=== PATIENT | female | born 1965 | race Caucasian/White ===

== ENCOUNTER → 2019-05-07 14:13 | Outpatient (CLI) | payer BC, MEDICAID, SELFPAY ==
[2019-03-03 08:57] VITALS: BMI 31.8
== END ==
PROVIDERS: Family Provider Family Medicine; PCP Family Medicine; Referring Provider Physician Assistant; Visit Provider Physician Assistant
DX: J02.9 Acute pharyngitis, unspecified (principal)
CPT/HCPCS: 87070

== ENCOUNTER → 2019-07-05 11:36 | Outpatient (CLI) | payer BC, SELFPAY ==
[2019-03-03 08:57] VITALS: BMI 31.8
[2019-07-05 13:37] LABS: Absolute Lymphocyte Count 2.23 X10^3/uL (0.83-4.51); Basophil# 0.04 X10^3/uL; Basophil% 0.7 % (0-1); Eosinophil# 0.18 X10^3/uL; Eosinophils% 3.1 % (0-5); Hematocrit 40.2 % (37-47); Hemoglobin 13.1 g/dL (12.0-15.0); Lymphocyte # 2.23 X10^3/ul (4.0); Lymphocyte % 38.1 % (19-41); Mean Corp Hgb Conc 32.6 g/dL (32-36); Mean Corpuscular Volume 88.9 fL (81-99); Mean Platelet Vol. 10.9 fl (6.2-12.0); Monocyte# 0.44 X10^3/uL; Monocyte% 7.5 % (0-10); NRBC Flagged by Analyzer 0 % (0-5); Neutrophil # 2.95 X10^3/uL (2.7-7.7); Neutrophil % 50.4 % (47-70); Platelet Count 220 K/mm3 (150-450); RBC Distribution Width CV 13.7 % (11.6-14.6); RBC Distribution Width SD 44.9 fl (35.1-43.9); Red Blood Count 4.52 M/mm3 (4.2-5.4); White Blood Count 5.9 K/mm3 (4.4-11.0)
[2019-07-05 13:39] LABS: Color, Urine Yellow (Yellow); Glucose, Dipstick Normal (Normal); Ketone-Dipstick Negative (Negative); Leukocyte Esterase-Dipstick Negative /ul (Negative); Nitrite-Dipstick Negative (Negative); Occult Blood-Urine Negative /ul (Negative); Protein-Dipstick 15 mg/dl (Negative); Urine Bilirubin Dipstick Negative (Negative); Urine Clarity Clear (Clear); Urine Urobilinogen Normal (Normal)
[2019-07-05 14:02] LABS: ALB/GLOB Ratio 1.1 RATIO (0.9-2.4); AST(SGOT) 16 U/L (15-37); Alanine Aminotransfer ALT/SGPT 38 U/L (13-56); Albumin, Serum 3.6 g/dL (3.2-5.0); Alkaline Phosphatase 82 U/L (45-117); Anion Gap 6 (5-15); BUN 17 mg/dL (7-18); Calcium,Total 8.4 mg/dL (8.5-10.1); Chloride 109 mmol/L (98-107); Cholesterol 188 mg/dL (200); Creatinine, Serum 0.95 mg/dL (0.55-1.02); EST Glomerular Filtration Rate 65 mL/min (>60); Est Glom Filt Rate - Afr Amer 79 mL/min (>60); Globulin 3.3 g/dL (2.2-4.2); Glucose 86 mg/dL (74-106); High Density Lipoprotein 72 mg/dL; Protein, Total 6.9 g/dL (6.4-8.2); Sodium Level 141 mmol/L (136-145); Thyroid Stim Hormone (TSH) 0.25 uIU/mL (0.358-3.74); Triglycerides 64 mg/dL; Very Low Density Lipoprotein 13 mg/dL (5-40)
== END ==
LOC: MTLAB 11:45
PROVIDERS: PCP Family Medicine; Referring Provider Family Medicine; Visit Provider Family Medicine
DX: Z00.00 Encounter for general adult medical examination without abnormal findings (principal); E03.9 Hypothyroidism, unspecified
CPT/HCPCS: 36415; 80053; 80061; 81002; 84443; 85025

== ENCOUNTER → 2019-09-13 12:13 | Outpatient (CLI) | payer BC, SELFPAY ==
[2019-03-03 08:57] VITALS: BMI 31.8
[2019-09-13 15:34] LABS: Thyroid Stim Hormone (TSH) 2.38 uIU/mL (0.358-3.74)
== END ==
LOC: MTLAB 12:15
PROVIDERS: PCP Family Medicine; Referring Provider Family Medicine; Visit Provider Family Medicine
DX: E03.9 Hypothyroidism, unspecified (principal)
CPT/HCPCS: 36415; 84443

== ENCOUNTER → 2020-06-27 16:52 | Outpatient (CLI) | payer BC, SELFPAY ==
[2020-06-27 08:22] VITALS: BMI 31.8
--- NOTE | 2020-06-27 16:54 | RAD_ITS ---
STUDY: X-RAY CHEST REASON FOR EXAM: Female, 55 years old. COVID 19 in April. Now with continued shortness of breath and fatigue. TECHNIQUE: PA and lateral views of the chest. COMPARISON: None. FINDINGS: The lungs are hypoexpanded. There is minimal atelectatic versus infiltrative changes at the right lung base. The lungs are otherwise clear. There is no demonstrated pleural abnormality. Normal size heart. Normal mediastinum and rinku. Normal visualized pulmonary arteries. Normal visualized aortic arch and descending thoracic aorta. Normal visualized thoracic spine. Normal visualized ribs, clavicles, and shoulders. There are surgical clips in the anterior neck. There is no demonstrated abnormality of the visualized soft tissue structures of the upper abdomen. RAD/Chest PA and Lateral IMPRESSION: Minimal atelectasis versus infiltrate in the right middle lobe. The lungs are otherwise clear. Electronically Signed: Evans Guillory DO at 17:10 EST Tel [phone], Service support ,
== END ==
PROVIDERS: PCP Family Medicine; Referring Provider Physician Assistant; Visit Provider Physician Assistant
DX: R06.02 Shortness of breath (principal)
CPT/HCPCS: 71046

== ENCOUNTER → 2020-07-12 14:58 | Outpatient (CLI) | payer BC, SELFPAY ==
[2020-07-12 14:31] VITALS: BMI 31.9
[2020-07-12 16:32] LABS: Absolute Lymphocyte Count 2.46 X10^3/uL (0.83-4.51); Absolute Neutrophil Count 3.1 X10^3/uL (2.0-7.7); Basophil# 0.04 X10^3/uL; Basophil% 0.6 % (0-1); Eosinophil# 0.27 X10^3/uL; Eosinophils% 4.3 % (0-5); Hematocrit 43.6 % (37-47); Hemoglobin 14.1 g/dL (12.0-15.0); Lymphocyte # 2.46 X10^3/ul (4.0); Lymphocyte % 39.1 % (19-41); Mean Corp Hgb Conc 32.3 g/dL (32-36); Mean Corpuscular Hgb 29.5 pg (27.0-32.0); Mean Corpuscular Volume 91.2 fL (81-99); Mean Platelet Vol. 11.2 fl (6.2-12.0); Monocyte# 0.44 X10^3/uL; NRBC Flagged by Analyzer 0 % (0-5); Neutrophil # 3.07 X10^3/uL (2.7-7.7); Neutrophil % 48.8 % (47-70); Platelet Count 262 K/mm3 (150-450); RBC Distribution Width CV 13.8 % (11.6-14.6); RBC Distribution Width SD 46.8 fl (35.1-43.9); Red Blood Count 4.78 M/mm3 (4.2-5.4); White Blood Count 6.3 K/mm3 (4.4-11.0)
[2020-07-12 16:55] LABS: ALB/GLOB Ratio 1.2 RATIO (0.9-2.4); AST(SGOT) 17 U/L (15-37); Alanine Aminotransfer ALT/SGPT 29 U/L (13-56); Albumin, Serum 3.8 g/dL (3.2-5.0); Alkaline Phosphatase 78 U/L (45-117); Anion Gap 5 (5-15); BUN 15 mg/dL (7-18); BUN/Creat Ratio 14.9 RATIO (10-20); Calcium,Total 8.9 mg/dL (8.5-10.1); Chloride 108 mmol/L (98-107); Cholesterol 206 mg/dL (200); Creatinine, Serum 1.01 mg/dL (0.55-1.02); EST Glomerular Filtration Rate 60 mL/min (>60); Est Glom Filt Rate - Afr Amer 73 mL/min (>60); Globulin 3.3 g/dL (2.2-4.2); Glucose 82 mg/dL (74-106); High Density Lipoprotein 84 mg/dL; Potassium 4.2 mmol/L (3.5-5.1); Protein, Total 7.1 g/dL (6.4-8.2); Sodium Level 140 mmol/L (136-145); Triglycerides 68 mg/dL; Very Low Density Lipoprotein 14 mg/dL (5-40)
== END ==
LOC: BIMLAB 14:59
PROVIDERS: PCP Internal Medicine; Referring Provider Internal Medicine; Visit Provider Internal Medicine
DX: E03.9 Hypothyroidism, unspecified (principal); J45.909 Unspecified asthma, uncomplicated
CPT/HCPCS: 36415; 80053; 80061; 84443; 85025

== ENCOUNTER → 2020-07-17 06:56 | Outpatient (CLI) | payer BC, SELFPAY ==
[2020-07-12 14:31] VITALS: BMI 31.9
--- NOTE | 2020-07-17 13:42 | PFTCOMP ---
COMPLETE PULMONARY FUNCTION TEST INTERPRETATION Brief HPI: Patient is a 55 year old female, currently under the care of Dr. Kendall, who presents to [facility] for complete pulmonary function tests secondary to diagnosis of asthma. Respiratory therapist reports good effort and reproducible results. Interpretation: Forced expiration spirometry shows no large airways obstructive ventilatory defect with an FEV1 of 92% predicted. There is no significant bronchodilator response by strict ATS criteria. Spirograms are of good quality and plateau normally. The respiratory flow volume loop shows a normal pattern. Lung volumes by body plethysmography show a decreased total lung capacity at 4.1 L, 80% predicted. All other lung volumes are reduced symmetrically. Diffusion capacity by carbon monoxide is decreased at 58% predicted. The airway resistance is normal. No previous pulmonary function tests were available for review. Impression: Mild restrictive ventilatory defect with a disproportionate reduction in diffusing capacity.
== END ==
LOC: PSN 06:56
PROVIDERS: PCP Internal Medicine; Referring Provider Internal Medicine; Visit Provider Internal Medicine
DX: J45.909 Unspecified asthma, uncomplicated (principal)
CPT/HCPCS: 94060; 94726; 94729

== ENCOUNTER → 2020-08-15 09:24 | Outpatient (CLI) | payer BC, SELFPAY ==
[2020-07-12 14:31] VITALS: BMI 31.9
--- NOTE | 2020-08-15 09:35 | ECHOD_ITS ---
Version 2 Reason For Study: SOB Procedure This was a 2D Doppler, Color Flow transthoracic echocardiogram. Exam performed in department. Left Ventricle Normal LV size. Left ventricular systolic function is normal. The estimated ejection fraction is 60 %. Stage 1 diastolic dysfunction. No regional wall motion abnormalities noted. Right Ventricle Normal RV size. Normal systolic function. Atria Normal left atrium. Normal right atrium. Mitral Valve Normal mitral valve. Tricuspid Valve Normal tricuspid valve. Aortic Valve Normal aortic valve. Trisinus/trileaflet aortic valve. Pulmonic Valve Normal pulmonic valve. Great Vessels Normal aortic root. The pulmonary artery is normal size. Normal inferior vena cava. Pericardium/Pleural No pericardial effusion. MMode/2D Measurements & Calculations LVIDd: 4.1 cm IVSd: 1.1 cm Ao root diam: 3.0 cm LVIDs: 2.2 cm LVPWd: 0.99 cm RVDd: 3.3 cm FS: 47.3 % LAV(MOD-bp): 45.3 ml LVAd ap4: 27.0 cm2 SV(MOD-sp4): 51.2 ml LAV(MOD-bp) Indexed: 22.3 ml/m2 EDV(MOD-sp4): 76.1 ml LAV(MOD-sp2): 34.1 ml EDV(sp4-el): 79.9 ml LAV(MOD-sp4): 56.7 ml LVAs ap4: 14.3 cm2 ESV(MOD-sp4): 24.9 ml ESV(sp4-el): 25.2 ml EF(MOD-sp4): 67.3 % EF(sp4-el): 68.4 % SV(sp4-el): 54.7 ml LA A4 area: 18.6 cm2 LA dimension(2D): 3.7 cm RA A4 area: 14.0 cm2 Doppler Measurements & Calculations MV E max aniket: 82.6 cm/sec Lat Peak E' Aniket: 8.1 cm/sec Med Peak E' Aniket: 6.7 cm/sec MV A max aniket: 89.6 cm/sec E/E' lat: 10.1 E/E' med: 12.3 MV E/A: 0.92 Ao V2 max: 123.5 cm/sec LV V1 max: 116.9 cm/sec PA V2 max: 95.2 cm/sec Ao max P.1 mmHg LV V1 max P.5 mmHg TR max aniket: 210.3 cm/sec TR max P.8 mmHg ECHO/Echo Complete Interpretation Summary Normal LV size. Left ventricular systolic function is normal. The estimated ejection fraction is 60 %. Stage 1 diastolic dysfunction. Ordering Physician: Malachi Kendall Referring Physician: Malachi Kendall Performed By: Ruthie Washburn RDCS
== END ==
PROVIDERS: PCP Internal Medicine; Referring Provider Internal Medicine; Visit Provider Internal Medicine
DX: R06.02 Shortness of breath (principal); R94.2 Abnormal results of pulmonary function studies
CPT/HCPCS: 93306

== ENCOUNTER → 2020-11-28 12:40 | Outpatient (CLI) | payer BC, SELFPAY ==
[2020-11-09 09:46] VITALS: BMI 34.3
[2020-11-28 13:23] VITALS: PULSE 101; PULSE 75; PULSE 77; PULSE 92; PULSE 93; PULSE 99; O2SAT 96; O2SAT 97
--- NOTE | 2020-11-29 10:18 | PCM.PSN.6M ---
PSN 6 Minute Walk Test 6 Minute Walk Test 6 Minute Walk Test: 6 Minute Walk Test PSN:6-Minute Walk Test Start: 11/28/20 13:23 Freq: Status: Active Protocol: RESP.6MINW Document 11/28/20 13:23 EMMA (Rec: 11/28/20 13:29 EMMA [id number]) 6 Minute Walk Test Date Performed 11/28/20 Time Performed 12:45 Height 5 ft 4 in Weight: 198 lb Weight in Pounds 198.[address]: Lam New Assistive device used: None Pre-test Oxygen Delivery Method Room Air Pulse Ox (%) 97 Pulse Rate (60-100 beats/min) 75 Dyspnea Kike Scale (0-10) 0 Exertion Kike Scale (6-20) 6 1st minute Oxygen Delivery Method Room Air Pulse Ox (%) 96 Pulse Rate (60-100 beats/min) 92 2nd minute Oxygen Delivery Method Room Air Pulse Ox (%) 96 Pulse Rate (60-100 beats/min) 93 3rd minute Oxygen Delivery Method Room Air Pulse Ox (%) 97 Pulse Rate (60-100 beats/min) 92 4th minute Oxygen Delivery Method Room Air Pulse Ox (%) 97 Pulse Rate (60-100 beats/min) 101 H 5th minute Oxygen Delivery Method Room Air Pulse Ox (%) 97 Pulse Rate (60-100 beats/min) 99 6th minute Oxygen Delivery Method Room Air Pulse Ox (%) 97 Pulse Rate (60-100 beats/min) 99 Dyspnea Kike Scale (0-10) 3 Exertion Kike Scale (6-20) 13 Post-test Oxygen Delivery Method Room Air Pulse Ox (%) 97 Pulse Rate (60-100 beats/min) 77 Full Laps Walked 16 Partial Lap, Number of Tiles Walked 16 Total Distance Walked (ft) 960 Interpretation Interpretation: The patient ambulated 960 feet over the course of 6 minutes beginning on room air without assistive devices. Pretesting oxygen saturation was noted to be 97% on room air. With ambulation, the monae oxygen saturation was 96%. There was no significant exertional oxygen desaturation. Recommendations Recommendations: There is no indication for the use of supplemental oxygen at this time.
== END ==
PROVIDERS: PCP Internal Medicine; Referring Provider Internal Medicine Critical Care Medicine; Visit Provider Internal Medicine Critical Care Medicine
DX: R94.2 Abnormal results of pulmonary function studies (principal); U07.1 COVID-19
CPT/HCPCS: 94618

== ENCOUNTER → 2020-12-06 16:18 | Outpatient (CLI) | payer BC, SELFPAY ==
[2020-12-05 18:11] VITALS: BMI 34.3
[2020-12-06 18:14] LABS: Thyroid Stim Hormone (TSH) 0.35 uIU/mL (0.358-3.74)
== END ==
PROVIDERS: PCP Internal Medicine; Referring Provider Internal Medicine; Visit Provider Internal Medicine
DX: E03.9 Hypothyroidism, unspecified (principal)
CPT/HCPCS: 36415; 84443

== ENCOUNTER → 2021-03-01 07:54 | Outpatient (CLI) | payer BC, SELFPAY ==
[2021-03-01 09:37] LABS: Thyroid Stim Hormone (TSH) 2.09 uIU/mL (0.358-3.74)
== END ==
PROVIDERS: PCP Internal Medicine; Referring Provider Nurse Practitioner Family; Visit Provider Nurse Practitioner Family
DX: E03.9 Hypothyroidism, unspecified (principal)
CPT/HCPCS: 36415; 84443

== ENCOUNTER 2021-06-07 08:55 | Outpatient (CLI) | payer OTHER, SELFPAY ==
[2021-06-07 12:25] LABS: Absolute Lymphocyte Count 1.64 X10^3/uL (0.83-4.51); Absolute Neutrophil Count 3.3 X10^3/uL (2.0-7.7); Basophil# 0.06 X10^3/uL; Eosinophil# 0.47 X10^3/uL; Hematocrit 42.3 % (37-47); Hemoglobin 13.8 g/dL (12.0-15.0); Lymphocyte # 1.64 X10^3/ul (0.83-4.51); Lymphocyte % 27.8 % (19-41); Mean Corp Hgb Conc 32.6 g/dL (32-36); Mean Corpuscular Hgb 29.4 pg (27.0-32.0); Mean Platelet Vol. 11.2 fl (6.2-12.0); Monocyte# 0.41 X10^3/uL; NRBC Flagged by Analyzer 0 % (0-5); Platelet Count 256 K/mm3 (150-450); RBC Distribution Width CV 13.5 % (11.6-14.6); RBC Distribution Width SD 44.8 fl (35.1-43.9); White Blood Count 5.9 K/mm3 (4.4-11.0)
[2021-06-07 12:48] LABS: ALB/GLOB Ratio 1.1 RATIO (0.9-2.4); AST(SGOT) 12 U/L (15-37); Alanine Aminotransfer ALT/SGPT 23 U/L (13-56); Albumin, Serum 3.6 g/dL (3.2-5.0); Alkaline Phosphatase 75 U/L (45-117); Anion Gap 4 (5-15); BUN 17 mg/dL (7-18); BUN/Creat Ratio 16.7 RATIO (10-20); Calcium,Total 8.5 mg/dL (8.5-10.1); Chloride 110 mmol/L (98-107); Cholesterol 178 mg/dL (200); Creatinine, Serum 1.02 mg/dL (0.55-1.02); EST Glomerular Filtration Rate 59 mL/min (>60); Est Glom Filt Rate - Afr Amer 72 mL/min (>60); Globulin 3.3 g/dL (2.2-4.2); Glucose 92 mg/dL (74-106); High Density Lipoprotein 72 mg/dL; Potassium 4.3 mmol/L (3.5-5.1); Protein, Total 6.9 g/dL (6.4-8.2); Sodium Level 140 mmol/L (136-145); Triglycerides 78 mg/dL; Very Low Density Lipoprotein 16 mg/dL (5-40)
== END 2021-06-07 23:59 | disposition short-term general hospital (02) ==
LOC: BIMLAB 08:56
PROVIDERS: PCP Internal Medicine; Referring Provider Internal Medicine; Visit Provider Internal Medicine
DX: Z00.00 Encounter for general adult medical examination without abnormal findings (principal)
CPT/HCPCS: 36415; 80053; 80061; 85025

== ENCOUNTER 2021-07-04 07:55 | Outpatient (CLI) | payer OTHER, SELFPAY ==
--- NOTE | 2021-07-04 07:57 | BI_ITS ---
MAMMOGRAPHY - BILATERAL SCREENING REASON FOR EXAM: Female, 56 years old. Routine annual screening examination. PERTINENT HISTORY: Non-contributory. TECHNIQUE: Digital bilateral breast britt (3D mammographic acquisition) in the CC and MLO projections. 2-D mediolateral oblique (MLO) and craniocaudad (CC) views of both breasts were obtained. CAD: Full Field Digital Mammography with Computer Added Detection was performed. COMPARISON: No comparison mammograms available at this time. If any prior films become available, an addendum to this report can be generated. FINDINGS: Breast Composition: The breasts are heterogeneously dense, which may obscure small masses. There is a 1.2 cm x 1.2 cm spiculated nodule in the deep upper slightly medial aspect of the right breast. A biopsy is recommended. Fat-containing bilateral axillary lymph nodes are seen. No other significant abnormalities are identified. BI/SCRN MAMM (CAD)W/BRITT BILAT IMPRESSION: 1.2 cm x 1.2 cm prickly nodule in the deep upper slightly medial aspect of the right breast as described. Biopsy recommended. ASSESSMENT CATEGORY: BIRADS Category 5: Highly Suggestive of Malignancy - Appropriate Action Should Be Taken. A letter regarding these results will be sent to the patient by the facility within 30 days. Approximately 10% of breast cancers are not detected by mammography. A normal mammogram should not delay biopsy of a clinically suspicious abnormality. [id number] Electronically Signed: Cesar Avila MD at 9:06 EST ,
== END 2021-07-04 23:59 | disposition home or self-care (01) ==
LOC: OPBI 07:55
PROVIDERS: PCP Internal Medicine; Referring Provider Internal Medicine; Visit Provider Internal Medicine
DX: Z12.31 Encounter for screening mammogram for malignant neoplasm of breast (principal)
CPT/HCPCS: 77063; 77067

== ENCOUNTER 2021-07-05 10:00 | Outpatient (CLI) | payer OTHER, SELFPAY | END 2021-07-05 23:59 | disposition home or self-care (01) | LOC: BIMLAB 10:01 | PROVIDERS: PCP Internal Medicine; Referring Provider Internal Medicine; Visit Provider Internal Medicine | DX: E03.9 Hypothyroidism, unspecified (principal) | CPT/HCPCS: 36415; 84443 ==

== ENCOUNTER 2021-07-10 12:44 | Outpatient (CLI) | payer OTHER, SELFPAY ==
--- NOTE | 2021-07-10 | IMM_PTH ---
PATIENT: JEANNE PIERRE LOC: [facility] U#:[id number] AGE/SX: 56/F ROOM: RE07/10/[address]: Dr. Estelita Lakhani MD : 1965 BED: DIS: 07/10/2021 SPEC #: [id number] RECD: 07/12/21 11:46 STATUS: RONALD REQ #: [id number] JAMILA: 07/10/21 00:[address]: Estelita Lakhani DEPT: IMMUNOHISTOCHEMISTRY RECD BY: Tierra Grier ENTERED: 07/12/21 11:47 SP TYPE: IMMUNO OTHR DR: Dr. Malachi Kendall MD Tissues: Right breast, NOS Procedures: CALPONIN-1 (add) CK5-6 (add) CK8 (add) VANG-2 (add) E-CAD (add) HER2 BLADIMIR (add) KI-67 (add) P53 (add) NH (add) P40 (add) ER (initial) PHYSICIAN & INSTITUTION [address] [address] SPECIMEN INFORMATION: Tissue Source: Right breast Clinical Info: Right breast mass Specimen Number: [id number] CPT code: 75817, 79556 x7, 38378 x3 METHODOLOGY: Deparaffinized sections of prefer/formalin-fixed tissue or PAP/DQ stained slides are incubated with monoclonal/polyclonal antibodies/oligonucleotide probes. Localization is made via biotin free immunoperoxidase method. Appropriate controls are performed and reacted as expected. Results on target cell population are indicated in the following table: RESULTS: ANTIBODY / CLONE RESULT P53 (DO-7) negative Ki-67 (30-9) positive, 5% CK8 (93uqcgT77) positive CK5-6 (D5 & 1684) negative Calponin-1 (JK369A) negative P40 (BC28) negative E-Cad (ECH-6) positive VANG-2 (SP21) positive, dim MORPHOMETRIC ANALYSIS ER (clone 6F11) >95%, strong intensity NH (clone 16/1E2) >95%, moderate to strong intensity Her-2Neu (clone CB11) 0 The prognostic test for HER2 is performed on formalin-fixed paraffin embedded tissue. A 3+ (positive) staining pattern is defined as intense, homogeneous, complete, circumferential membranous staining in >10% of contiguous tumor cells. A similar weak (2+) staining pattern is interpreted as equivocal. MICHAELA follow-up testing is recommended for all equivocal cases. Positivity/negativity for ER/NH is reported if > or < 1% of the tumor cells are immuno- reactive, respectively. The ASCO/CAP criteria is used for scoring. Reference: Journal of Clinical Oncology, 2013; 31:7261-6375 & 2010; 16:3340-0615. Duration of fixation: 28.5 Hrs; Sample Adequate: Yes. These assays have not been validated on decalcified tissues. Results should be interpreted with caution given the likelihood of false negativity on decalcified specimens. These tests were developed and their performance characteristics determined by [facility]. They may not have been cleared or approved by the U.S. Food and Drug Administration. The FDA has determined that such clearance or approval is not necessary. The above immunohistochemical/dualISH markers are ordered and reviewed by the Pathologist. INTERPRETATION: Right breast, ultrasound-guided core biopsy: Invasive ductal carcinoma. Positive for estrogen receptors (favorable prognostic indicator). Positive for progesterone receptors (favorable prognostic indicator). Negative for overexpression of PHL9qcu. AM:maria g 07/15/2021
--- NOTE | 2021-07-10 | BRBX_PTH ---
PATIENT: JEANNE PIERRE LOC: [facility] U#:[id number] AGE/SX: 56/F ROOM: RE07/10/[address]: Dr. Estelita Lakhani MD : 1965 BED: DIS: 07/10/2021 SPEC #: [id number] RECD: 07/10/21 15:32 STATUS: RONALD REGurwinder #: [id number] JAMILA: 07/10/21 00:[address]: Estelita Lakhani DEPT: SURGICAL PATHOLOGY RECD BY: Milton Munroe ENTERED: 07/11/21 08:41 SP TYPE: BREAST BX OTHR DR: Dr. Malachi Kendall MD Tissues: Right breast, NOS Procedures: Surgery Specimen Level IV HEADER OPERATION: Ultrasound-guided right breast biopsy PRE-OP DIAGNOSIS: Right breast mass TISSUE SUBMITTED: Right breast ISCHEMIC TIME: 30 seconds FIXATION TIME: 28.5 hours MICROSCOPIC DIAGNOSIS Right breast mass, ultrasound-guided core biopsy: Invasive ductal carcinoma with the following characteristics: Nuclear grade ? 1/3 Maximal length ? 9 millimeters See comment. AM:maria g 07/12/2021 COMMENT Immunohistochemistry ([id number]) supports the above diagnosis. This case was discussed with Dr. Lakhani 07/15/21. MICROSCOPIC DESCRIPTION Slides are reviewed. GROSS DESCRIPTION Received in fixative is one container labeled with the patient's name and designated right breast. The specimen consists of two elongated fragments of mackey tissue. Each core has an average length of 1.5 cm and average diameter of 0.2 cm. The specimen is totally submitted in one cassette. / AM:maria g 07/11/2021 TC:0 [facility]: [id number]
--- NOTE | 2021-07-10 12:48 | US_ITS ---
STUDY: ULTRASOUND BREAST - RIGHT REASON FOR EXAM: Female, 56 years old. Abnormal screening mammogram. TECHNIQUE: Axial and longitudinal images of the RIGHT breast were performed with a high resolution ultrasound transducer. # OF IMAGES: 80 COMPARISON: Comparison is made with prior mammogram dated 07/04/2021. FINDINGS: RIGHT Breast: The mammographic abnormality corresponds to a 1.1 cm x 1.3 cm x 1.1 cm irregular hypoechoic solid mass at the 1 o''clock position the breast that for sinusitis of the nipple. Biopsy recommended. IMPRESSION: 1.1 cm x 1.3 cm x 1.1 cm irregular hypoechoic solid nodular mass at the 1 o''clock position of the breast at 4 cm from the nipple. ASSESSMENT CATEGORY: BIRADS Category 4: Suspicious - Biopsy Should Be Considered. A letter regarding these results will be sent to the patient by the facility within 30 days. Electronically Signed: Cesar Avila MD at 14:03 EST Reading Location ID and State: [address] [facility] , Service support , STUDY: ULTRASOUND BREAST - LEFT REASON FOR EXAM: Female, 56 years old. Abnormal screening mammogram. TECHNIQUE: Axial and longitudinal images of the LEFT breast were performed with a high resolution ultrasound transducer. # OF IMAGES: 80 COMPARISON: Comparison is made with prior mammogram dated 07/04/2021. FINDINGS: LEFT Breast: There is a 4 mm x 4 mm x 3 mm cyst at the 4 o''clock position of the breast 1 cm from nipple. US/Breast Limited Unilateral IMPRESSION: 4 mm x 4 mm x 3 mm cyst at the 4 o''clock position of the breast and one summary from nipple. ASSESSMENT CATEGORY: BIRADS Category 2: Benign. A letter regarding these results will be sent to the patient by the facility within 30 days. Electronically Signed: Cesar Avila MD at 14:05 EST ,
--- NOTE | 2021-07-10 12:48 | US_ITS ---
ULTRASOUND GUIDED CORE BIOPSY REASON FOR EXAM: Female, 56 years old. Right breast mass. PERTINENT HISTORY: Right breast mass. COMPARISON: Comparison is made with prior ultrasound of the right breast done earlier today. TECHNIQUE: (All elements of maximal sterile barrier technique followed, including US elements as applicable) Under direct sonographic guidance, the surgeon performed core biopsies of the 1.1 cm x 1.3 cm x 1.1 cm nodule at the 1 o''clock position the breast at 4 cm some nipple. US/US Breast Biopsy 1st Lesion IMPRESSION: Ultrasound guided core biopsy of a mass in the RIGHT breast at 1 o''clock position of the breast of 4 sinus from the nipple without complication. Electronically Signed: Cesar Avila MD at 15:39 EST ,
--- NOTE | 2021-07-10 14:49 | PCM.OPRPT ---
Report of Operation Date of Procedure: 07/10/21 Pre-Operative Diagnosis: Right breast mass Post-Operative Diagnosis: Same Surgery/Procedure Performed:: Right ultrasound-guided breast biopsy Surgeon: Estelita Lakhani Type of Anesthesia: Local Estimated Blood Loss (mL): < 10 cc Description of Procedure: Procedure: ultrasound-guided core biopsy Indications: 56 year-old female with hypoechoic nodule at 1:00 in the right breast for centimeters from the nipple. Risk benefits were discussed the patient and she elected to proceed with ultrasound guided core biopsy with clip placement Description of procedure: Patient was brought into the ultrasound room in the right breast was marked. A timeout was completed verifying correct patient, procedure, site, specially, prior to beginning procedure. The right breast was prepped and draped in usual sterile fashion and using local anesthesia was obtained with 1% lidocaine with epi. The lesion was located with the ultrasound. Small incision was made with 11 blade to introduced the 14-gauge BARD MaxCore through the skin. Under ultrasound guidance multiple core samples were obtained using then BARD MaxCore and sent in formalin for pathology. The Bard dual ultra ribbon clip was then deployed into the biopsy cavity under ultrasound guidance and a picture was taken. Upon completion procedure hemostasis was obtained and a Steri-Strip and OpSite were placed. Patient was then taken to the mammography suite for clip verification. The clip was verified. The patient tolerated the procedure well and was discharged from the breast imaging department good condition. complications: none Complications none
== END 2021-07-10 23:59 | disposition home or self-care (01) ==
LOC: BIRAD 12:45
PROVIDERS: PCP Internal Medicine; Visit Provider Surgery
DX: D05.81 Other specified type of carcinoma in situ of right breast (principal)
CPT/HCPCS: 19083; 76642; 88305; 88341; 88342

== ENCOUNTER 2021-07-16 06:29 | Day surgery (SDC) | payer OTHER, SELFPAY ==
[2021-07-16 06:51] VITALS: BP 122/76; PULSE 74; RESP 18; TEMP 36.4; O2SAT 100; BMI 33.6
[2021-07-16] MEDS: Lactated Ringers 1,000 ML 15 ML IV (07:00)
--- NOTE | 2021-07-16 07:09 | HP.PCM_ITS ---
HPI - General HPI Narrative JEANNE PIERRE, is a 56 F who presents colonoscopy. She says her last colonoscopy was 30 years ago. She is not having any abdominal pain or blood in her stool. Patient does not have a family history of colon cancer in her immediate family although she does have a family history in her grandfather. [facility] Medical History (Updated 07/16/21 @ 07:[address] Dionicio Cameron MD) Abnormal mammogram Anemia Anxiety and depression Asthma Back pain Colon cancer screening COVID-19 [place] fever History of COVID-19 History of echocardiogram Hypertension Hypothyroidism Migraines Non-smoker Preventative health care Shortness of breath on exertion Thyroid disease Wears glasses Home Medications budesonide-formoterol HFA 160 mcg-4.5 mcg/actuation aerosol inhaler 2 puff INHALATION BID #10.2 g 07/13/20 [Rx Last Taken Unknown] albuterol sulfate 0.63 mg/3 mL solution for nebulization 0.63 mg INHALATION Q4H PRN #90 ml 08/16/20 [Rx Last Taken Unknown] naproxen sodium 220 mg capsule 220 mg PO BID PRN 08/16/20 [History Last Taken Unknown] bupropion HCl 300 mg 24 hr tablet, extended release 300 mg PO DAILY #90 tablet 03/01/21 [Rx Last Taken Unknown] escitalopram oxalate 5 mg tablet 5 mg PO QDAY #90 tablet 03/01/21 [Rx Last Taken Unknown] sumatriptan succinate 100 mg tablet 100 mg PO ONCE #14 tab 03/01/21 [Rx Last Taken Unknown] amlodipine 5 mg tablet 5 mg PO DAILY #30 tab 07/05/21 [Rx Last Taken Unknown] baclofen 10 mg tablet 10 mg PO BID PRN #60 tab 07/05/21 [Rx Last Taken Unknown] levothyroxine 112 mcg tablet 112 mcg PO DAILY #60 tab 07/05/21 [Rx Last Taken Unknown] Allergy/AdvReac Type Severity Reaction Status Date / Time No Known Allergies Allergy Verified 07/16/21 06:48 Family History Grandfather Colon cancer Father Diabetes Skin cancer Surgical History (Updated 07/12/21 @ 12:16 by Tequila Curran) History of appendectomy History of History of hysterectomy History of thyroidectomy History of tonsillectomy Hx of breast biopsy Social History Smoking Status: Never smoker alcohol intake: never substance use type: does not use what type of physical activity do you participate in: walking Past Medical/Surgical History Planned Operation Planned Operative Procedure/s: CSCOPE OA Previous Hospitalizations/Surgeries HX Hospitalizations: No Any Problems With Anesthesia: No You/Your Family Experience Fever (Hyperthermia) With Anes: No Cholinesterase deficiency: No Cardiovascular Hx of Irregular Heartbeat and/or Afib: No Hx Heart Attack: No Hx Congestive Heart Failure: No Hx Hypertension: Yes (CONTROLLED WITH MED) Hx Pacemaker: No Respiratory Hx Chronic Obstructive Pulmonary Disease (COPD): No Hx Asthma: No Hx Emphysema: No Hx Sleep Apnea: No Hx Respiratory Tract Infection/Cold (presently): No Do You Snore Loudly (louder than talking or can be heard): No Do You Often Feel Tired/ Fatigued/ Sleepy Dring Daytime?: No Has Anyone Observed You Stop Breathing During Sleep?: No Result (for STOP score): Negative Smoking Status: Never smoker Gastrointestinal Hx Gastroesophageal Reflux: No Hx Ulcer: No Neurological Hx Seizures: No Hx Head/Neck Injury: No Hx Headaches: No Hx Back Injury/Pain: No Does patient have nerve stimulator: No Reproduction : No Psycho/Social Hx Anxiety: Yes Miscellaneous Recent Exposure to Contagious Disease: No Allergies No Known Allergies Allergy (Verified 07/16/21 06:48) Discharge Is Pt Admitted From a Senior Care, or a Usp: No After D/C, Where Do you Plan to Go: Return Home Vital Signs Vital Signs Vital Signs: 07/16/21 06:50 07/16/21 06:51 Temperature 97.5 F L Temperature Source Temporal Pulse Rate 74 Respiratory Rate 18 Respiratory Pattern Normal Blood Pressure 122/76 H Blood Pressure Mean 91 Blood Pressure Source Monitor Blood Pressure Position Semi-Fowlers Blood Pressure Location Left Arm Pulse Ox 100 Oxygen Delivery Method Room Air Weight Weight: 196 lb Body Mass Index (BMI) 33.6 Physical Exam Const alert and oriented x3 Resp normal respiratory effort and normal air movement Cardio regular rate and regular rhythm GI soft to palpation, non-tender and non-distended Assessment & Plan Assessment/Plan (1) Screen for colon cancer: PLAN: I explained endoscopy in detail to the patient. I explained the risks including but not limited to stroke or heart attack with anesthesia, perforation of the GI tract, bleeding, infection. I explained that any of these could necessitate further emergency surgery. The patient understands and all questions were answered sufficiently. The patient wishes to proceed with procedure. Dionicio Cameron MD Pager: [facility] [address] [place] [address] [address] [place] [address] Office: Surgery Risks - Colonoscopy Risks Include but are not Limited To: Risks include but are not limited to: Bleeding, perforation requiring further surgery, inability to complete colonoscopy requiring barium enema.
[2021-07-16 07:43] VITALS: BP 106/73; BP 122/76; PULSE 72; RESP 14; TEMP 36.4; O2SAT 98
--- NOTE | 2021-07-16 07:43 | OP.COLON_ITS ---
Patient Name: Maria Fernanda Allison Procedure Date: 07/16/2021 7:06 AM Date of : 1965 Age: 56 Procedure: Colonoscopy Indications: Screening for colorectal malignant neoplasm Providers: Dionicio Cameron MD Referring MD: Dionicio Cameron MD Medicines: Monitored Anesthesia Care Patient Profile: This is a 56 year old female. Refer to note in patient chart for documentation of history and physical. Last Colonoscopy: more than 10 years ago. Complications: No immediate complications. Procedure: Pre-Anesthesia Assessment: - Prior to the procedure, a History and Physical was performed, and patient medications and allergies were reviewed. The patient's tolerance of previous anesthesia was also reviewed. The risks and benefits of the procedure and the sedation options and risks were discussed with the patient. All questions were answered, and informed consent was obtained. Prior Anticoagulants: The patient has taken no previous anticoagulant or antiplatelet agents. After reviewing the risks and benefits, the patient was deemed in satisfactory condition to undergo the procedure. After I obtained informed consent, the scope was passed under direct vision. Throughout the procedure, the patient's blood pressure, pulse, and oxygen saturations were monitored continuously. The Colonoscope was introduced through the anus and advanced to the cecum, identified by appendiceal orifice and ileocecal valve. The colonoscopy was performed without difficulty. The patient tolerated the procedure well. The quality of the bowel preparation was good. Scope In: 7:29:16 AM Scope Withdrawal Time 0 hours 6 minutes 2 seconds Scope Out: 7:41:28 AM Total Procedure Duration Time 0 hours 12 minutes 12 seconds Findings: The entire examined colon appeared normal on direct and retroflexion views. Impression: - The entire examined colon is normal on direct and retroflexion views. - No specimens collected. Recommendation: - Discharge patient to home. - Resume previous diet. - Continue present medications. - Repeat colonoscopy in 10 years for screening purposes. Procedure Code(s): --- Professional --- G0121, Colorectal cancer screening; colonoscopy on individual not meeting criteria for high risk Diagnosis Code(s): --- Professional --- Z12.11, Encounter for screening for malignant neoplasm of colon CPT copyright 2017 [employer]. All rights reserved. The codes documented in this report are preliminary and upon laboratory animal care veterinarian review may be revised to meet current compliance requirements. Dionicio Cameron MD 07/16/2021 7:42:45 AM This report has been signed electronically. Number of Addenda: 0 Note Initiated On: 07/16/2021 7:06 AM
--- NOTE | 2021-07-16 07:44 | OP.CCLET_ITS ---
07/16/2021 Malachi Kendall MD [address] [place] [address] [place] [address] Re : Colonoscopy procedure for Maria Fernanda Allison Dear Dr. Kendall This procedure was performed on Friday, July 16, 2021. My impressions and recommendations are as follows: Impressions : - The entire examined colon is normal on direct and retroflexion views. - No specimens collected. Recommendations : - Discharge patient to home. - Resume previous diet. - Continue present medications. - Repeat colonoscopy in 10 years for screening purposes. My findings are described in the full procedure note, which is enclosed. If I can be of further assistance, please feel free to contact me at Doctor phone number(s): , Work: . Sincerely, Dionicio Cameron MD 07/16/2021 7:42:45 AM This report has been signed electronically.
[2021-07-16 07:45] VITALS: BP 107/73; BP 122/76; PULSE 70; RESP 14; O2SAT 99
[2021-07-16 07:50] VITALS: BP 110/73; BP 122/76; PULSE 68; RESP 14; O2SAT 99
[2021-07-16 07:55] VITALS: BP 115/75; BP 122/76; PULSE 70; RESP 16; TEMP 36.3; O2SAT 100
[2021-07-16 08:15] VITALS: BP 122/76
== END 2021-07-16 23:59 | disposition home or self-care (01) ==
LOC: EN 06:32 → AC 06:33
PROVIDERS: PCP Internal Medicine; Referring Provider Surgery; Visit Provider Surgery
PROC: 0DJD8ZZ Inspection of Lower Intestinal Tract, Via Natural or Artificial Opening Endoscopic (ICD-10-PCS; CPT 45378; principal; 2021-07-16 07:25)
DX: Z12.11 Encounter for screening for malignant neoplasm of colon (principal); I10 Essential (primary) hypertension; Z80.0 Family history of malignant neoplasm of digestive organs; Z86.16 Personal history of COVID-19; E03.9 Hypothyroidism, unspecified; F32.A Depression, unspecified; F41.9 Anxiety disorder, unspecified
CPT/HCPCS: 45378; 87426; C9803; J7120

== ENCOUNTER 2021-08-05 12:25 | Outpatient (CLI) | payer OTHER, SELFPAY ==
--- NOTE | 2021-08-05 12:28 | MRI_ITS ---
STUDY: BILATERAL BREAST MR WITHOUT AND WITH CONTRAST REASON FOR EXAM: Female, 56 years old. Newly diagnosed breast cancer. TECHNIQUE: Multi-sequence multi-echo imaging of both breasts was performed with a dedicated breast coil. T1-weighted and T2-weighted images were performed before the administration of contrast. T1-weighted images were also performed after the intravenous administration of 18 mL of Dotarem contrast. COMPARISON: Prior mammograms dated 07/04/2021, right breast ultrasound dated 07/10/2021 and ultrasound-guided biopsy images dated 07/10/2021. FINDINGS: RIGHT BREAST: The breast tissue is heterogeneously dense with moderate background enhancement. There are no abnormal enhancing masses or areas of non-mass enhancement in the right breast. LEFT BREAST: The breast tissue is heterogeneously dense with moderate background enhancement. Irregular enhancing mass in the upper inner quadrant of the right breast 8.2 cm behind the nipple, 1.6 cm medial to the nipple and 4.5 cm above the nipple measuring 2 cm x 1.1 cm x 1.4 cm best seen on axial series 05/22/2000 images 103-120). Multiple lymph nodes in the right axilla, the largest of which measures 1.3 cm in diameter and is best seen on axial series 05/22/2000 image 49. There is no abnormality in the visualized regions of the chest or liver. MRI/Breast Bilateral W/O and W IMPRESSION: Heterogeneously dense breasts with moderate background enhancement bilaterally. Irregular enhancing mass in the upper medial aspect of the right breast as described. Multiple lymph nodes in the right axilla, the largest of which measures 1.3 cm in diameter. CATEGORY: BIRADS Category 6: Known Biopsy-Proven Malignancy - Appropriate Action Should Be Taken. A letter regarding these results will be sent to the patient by the facility within 30 days. Electronically Signed: Michel Stearns MD at 11:55 EDT ,
[2021-08-05 13:06] LABS: CREATININE FINGERSTICK 1.1 mg/dL (0.55-1.02)
== END 2021-08-05 23:59 | disposition home or self-care (01) ==
LOC: MRI 12:28
PROVIDERS: PCP Internal Medicine; Referring Provider Surgery; Visit Provider Surgery
DX: C50.919 Malignant neoplasm of unspecified site of unspecified female breast (principal)
CPT/HCPCS: 77049; A9575; A4216; C8908

== ENCOUNTER 2021-08-16 09:26 | Day surgery (SDC) | payer OTHER, SELFPAY ==
[2021-08-16] VITALS (11 sets, daily range): BP systolic 96–142; BP diastolic 63–78; PULSE 61–84; RESP 14–18; TEMP 36.8–37.2; O2SAT 92–100; BMI 34.5
--- NOTE | 2021-08-16 | AXNB_PTH ---
PATIENT: JEANNE PIERRE LOC: [facility] [place] U#:[id number] AGE/SX: 56/F ROOM: RE08/16/[address]: Dr. Estelita Lakhani MD : 1965 BED: DIS: 08/16/2021 SPEC #: [id number] RECD: 08/16/21 15:23 STATUS: RONALD REQ #: [id number] JAMILA: 08/16/21 00:[address]: Estelita Lakhani DEPT: SURGICAL PATHOLOGY RECD BY: Tierra Grier ENTERED: 08/16/21 15:24 SP TYPE: AX NODE BX OTHR DR: Dr. Malachi Kendall MD Tissues: A - Axillary lymph node, NOS B - Right breast, NOS Procedures: Frozen Section (charge) Frozen Section Add'l ([facility]) Surgery Specimen Level V HEADER OPERATION: Breast lumpectomy, sentinel node, radiotracer identification PRE-OP DIAGNOSIS: Right breast invasive ductal carcinoma TISSUE SUBMITTED: A - Right side sentinel node x2, B ? Right breast mass, long stitch ? lateral, short - superior FROZEN SECTION DIAGNOSIS A. Right axillary sentinel lymph nodes, biopsy: Two out of two lymph nodes, negative for metastatic carcinoma. ARIE:maria g 08/16/2021 MICROSCOPIC DIAGNOSIS A. Right sentinel lymph nodes, biopsy: Two out of two lymph nodes, negative for metastatic carcinoma. See comment. B. Right breast mass, lumpectomy with needle localization: Invasive ductal carcinoma. Ductal carcinoma in situ. See cancer summary in the comment section. SJ:maria g 08/21/2021 COMMENT A. The lymph nodes are negative for metastatic carcinoma on multiple H & E levels and immunohisto-chemical stains for cytokeratins ([id number]). B. BREAST CANCER SUMMARY Procedure - excision with needle localization Specimen laterality - right Tumor: Tumor site ? not specified Tumor size ? 2.2 x 1.5 x 1.2 cm Histologic type ? invasive ductal carcinoma, not otherwise specified. Histologic grade (Maria Del Rosario grade): Glandular/tubular differentiation score - 2 Nuclear pleomorphism score - 2 Mitotic count score - 1 Overall grade - grade 1 (score of 5) Tumor focality ? single focus of invasive carcinoma. Ductal carcinoma in situ - present Negative for extensive intraductal component (EIC). Size (extent) of DCIS ? DCIS comprise <5% of the total volume. Number of blocks with DCIS - 2 Number of blocks examined - 12 Architectural pattern ? solid and cribriform Nuclear grade - grade 2 (intermediate) Necrosis ? not identified Tumor extension: Skin ? not present Nipple ? not applicable Skeletal muscle ? not present Margins - Invasive carcinoma and ductal carcinoma in situ are 0.3 cm away from the closest anterior margin. Regional lymph nodes: Number of lymph nodes examined - 2 Number of sentinel lymph nodes examined - 2 Number of lymph nodes with macrometastases, micrometastases or isolated tumor cells ? 0 Treatment effect - no known presurgical therapy. Lymphvascular invasion ? not identified Dermal lymphvascular invasion ? not applicable Distant metastasis - not applicable Additional Pathologic Findings ? fibrocystic changes, intraductal hyperplasia without atypia. - Intraductal papilloma. Ancillary Studies: Previously performed on same tumor ([id number] / [id number]) ER: positive (>95%, strong intensity) DC: positive (>95%, moderate to strong intensity) Smo1but: negative (0) Microcalcifications ? present in non-neoplastic tissue. Clinical History - Please make reference to previous specimen ([id number]) right breast mass, ultrasound-guided core biopsy with diagnosis of invasive ductal carcinoma. PATHOLOGIC STAGE: pT2 pN0(sn) pMx The above summary is in compliance with [employer] [place] [employer] (CAP) Cancer Protocols Checklist and [place] Joint Committee on Cancer (AJCC), Staging Manual, 8th Ed. Case has been reviewed in consultation with Dr. Calderon who concurs with the above diagnosis. IDC:AM MICROSCOPIC DESCRIPTION Slides are reviewed. GROSS DESCRIPTION A - Received fresh for frozen section diagnosis labeled with the patient's name is a specimen designated right sentinel lymph node. The specimen consists of two pieces of adipose tissue containing nodule measuring 2 x 1.5 x 0.5 cm and 1.5 x 1 x 0.5 cm. Both pieces are bisected and submitted for frozen section diagnosis in two cassettes with each cassette containing one bisected lymph node. / ARIE:maria g 08/16/2021 B - Received fresh for intraoperative consultation labeled with the patient's name is a specimen designated right breast mass. The specimen consists of a piece of fibroadipose tissue with needle localization measuring 5 x 4 x 3 cm. The specimen is oriented as follows: long stitch - lateral, short stitch - superior. The specimen is inked as follows: anterior - yellow, posterior - black, superior - blue, inferior - green, medial - red and lateral - orange. Serial sections reveal a mackey, indurated tumor mass measuring 2.2 x 1.5 x 1.2 cm. This mass is 0.4 cm away from the closest anterior margin. This information is conveyed to the surgeon intraoperatively. Sectioning of the rest of the specimen reveal mackey-yellow adipose cut surfaces mixed with mackey, fibrous area. The entire specimen is submitted in 12 cassettes as follows: 1 & 2 - perpendicular margins, 3-6 - entire tumor with closest anterior margin, 7-12 - rest of the specimen. Sections are submitted after additional fixation. / SJ:maria g 08/19/2021 TC:0 [facility]: [address]6612 x2, 49284, 62676, 72152 ADDENDUM ADDENDUM ADDENDUM ADDENDUM ADDENDUM ADDENDUM ADDENDUM ADDENDUM 09/09/2021 10:40 ADDENDUM 09/09/2021 10:40 ADDENDUM 09/09/2021 10:40 ADDENDUM 09/09/2021 10:40 ADDENDUM 09/09/2021 10:40 An order for Oncotype testing was received from Dr. Do. This necessitated case review, block and slide selection by pathologist at [facility]. Breast Cancer Recurrence Score = 13 Results of the complete Oncotype testing (ishBowl report) are viewable in EMR under: Reports - Pathology - Lab Pathology Report, Scanned.
--- NOTE | 2021-08-16 | IMM_PTH ---
PATIENT: JEANNE PIERRE [place] [facility] [place][id number] AGE/SX: 56/F ROOM: RE08/16/[address]: Dr. Estelita Lakhani MD : 1965 BED: DIS: 08/16/2021 SPEC #: [id number] RECD: 08/21/21 13:04 STATUS: RONALD REQ #: [id number] JAMILA: 08/16/21 00:[address]: Estelita Lakhani DEPT: IMMUNOHISTOCHEMISTRY RECD BY: Tierra Grier ENTERED: 08/21/21 13:07 SP TYPE: IMMUNO OTHR DR: Dr. Malachi Kendall MD Tissues: A - Axillary lymph node, NOS Procedures: CK7 (add) Pankeratin (initial) Pankeratin (add) PHYSICIAN & INSTITUTION [place] [address] SPECIMEN INFORMATION: Tissue Source: A ? Right axillary sentinel lymph nodes Clinical Info: Right breast invasive ductal carcinoma Specimen Number: [id number] A1 & A2 CPT code: 53951, 67652 x3 METHODOLOGY: Deparaffinized sections of prefer/formalin-fixed tissue or PAP/DQ stained slides are incubated with monoclonal/polyclonal antibodies/oligonucleotide probes. Localization is made via biotin free immunoperoxidase method. Appropriate controls are performed and reacted as expected. Results on target cell population are indicated in the following table: RESULTS: ANTIBODY / CLONE RESULT Block A1 AE1-3 (AE1/AE3/PCK26) negative CK7 (OV-TL12/30) negative Block A2 AE1-3 (AE1/AE3/PCK26) negative CK7 (OV-TL12/30) negative These tests were developed and their performance characteristics determined by [facility]. They may not have been cleared or approved by the U.S. Food and Drug Administration. The FDA has determined that such clearance or approval is not necessary. The above immunohistochemical/dualISH markers are ordered and reviewed by the Pathologist. INTERPRETATION: A. Right axillary sentinel lymph nodes, biopsy: Two out of two lymph nodes, negative for metastatic carcinoma. SJ:maria g 08/22/2021
[2021-08-16] MEDS: Lactated Ringers 1,000 ML 15 ML IV (10:20)
--- NOTE | 2021-08-16 11:00 | NM_ITS ---
PROCEDURE: NUCLEAR MEDICINE Injection Kent Node - RIGHT breast(s). REASON FOR EXAM: Female, 56 years old. TECHNIQUE: Kent node localization using radionuclide methods of the RIGHT breast(s) was performed following subcutaneous administration of 1.1 mCi of of sulfur colloid Tc-99m. FINDINGS: 1.1 mCi of technetium labeled sulfur colloid was injected subcutaneously in 4 equal aliquots in the right periareolar region. NM/Lymph Node Imaging IMPRESSION: Injection of 1.1 mCi of technetium labeled sulfur colloid for sentinel node imaging. Electronically Signed: Cesar Avila MD at 13:06 EDT ,
--- NOTE | 2021-08-16 11:12 | HP.PCM_ITS ---
History and Physical Date of Admission: 08/16/21 Date of Service: 08/08/21 MR#:[id number]:[id number]: JEANNE PIERRE #:[id number]:[id number] Provider:Benoit Betancourt/Sex: 56/F [facility] Int[facility] Intake Visit Reasons: discuss surgical management and MRI Chief Complaint: 1 MONTH F/U Allergies No Known Allergies Allergy (Verified 08/08/21 13:54) Medications budesonide-formoterol HFA 160 mcg-4.5 mcg/actuation aerosol inhaler 2 puff INHALATION BID #10.2 g 07/13/20 [Rx Confirmed 08/08/21] albuterol sulfate 0.63 mg/3 mL solution for nebulization 0.63 mg INHALATION Q4H PRN #90 ml 08/16/20 [Rx Confirmed 08/08/21] naproxen sodium 220 mg capsule 220 mg PO BID PRN 08/16/20 [History Confirmed 08/08/21] bupropion HCl 300 mg 24 hr tablet, extended release 300 mg PO DAILY #90 tablet 03/01/21 [Rx Confirmed 08/08/21] escitalopram oxalate 5 mg tablet 5 mg PO QDAY #90 tablet 03/01/21 [Rx Confirmed 08/08/21] sumatriptan succinate 100 mg tablet 100 mg PO ONCE #14 tab 03/01/21 [Rx Confirmed 08/08/21] baclofen 10 mg tablet 10 mg PO BID PRN #60 tab 07/05/21 [Rx Confirmed 08/08/21] levothyroxine 112 mcg tablet 112 mcg PO DAILY #60 tab 07/05/21 [Rx Confirmed 08/08/21] amlodipine 5 mg tablet 5 mg PO DAILY #90 tab 08/08/21 [Rx Confirmed 08/08/21] PFSH Medical History Abnormal mammogram Anemia Anxiety and depression Asthma Back pain Colon cancer screening COVID-19 [place] History of COVID-19 History of echocardiogram Hypertension Hypothyroidism Migraines Non-smoker Preventative health care Shortness of breath on exertion Thyroid disease Wears glasses Surgical History History of appendectomy History of History of hysterectomy History of thyroidectomy History of tonsillectomy Hx of breast biopsy Family History Grandfather Colon cancer Father Diabetes Skin cancer Social History Smoking Status: Never smoker alcohol intake: never substance use type: does not use what type of physical activity do you participate in: walking HPI HPI HPI: JEANNE PIERRE, is a 56 F who presents to the office today for discussion of surgery for breast cancer and follow-up of breast MRI. Patient's breast MRI did see the enhancing mass in the right breast did comment about largest nodes measuring 1.3 cm however did not comment if they were suspicious or not. Patient's initial ultrasound mass was 1.3 cm, ER/MI positive, HER-2/jose negative. Patient did go see genetics however due to not having any family history they did not say she met criteria and patient chose not to have genetics completed. ROS General General: No weight change, appetite, fatigue, colon cancer or breast cancer HEENT HEENT: No difficulty swallowing, eye injury, eye surgery, swollen glands or ho arseness Endo Endocrine: Yes thyroid disease; No diabetes mellitus, thyroid cancer, Hair loss, heat intolerance or cold intolerance Skin Skin: No rash or changing moles Breast Breast: No left breast lump, right breast lump, nipple discharge, breast pain, abnormal mammogram, abnormal US or breast enlargement Musc Musculoskeletal: No back problems, arthritis, rheumatoid arthritis, gout or joint pain Cardio Cardiovascular: Yes high blood pressure; No murmur, pacemaker, heart disease, atrial fibrillation, heart attack, heart stent, palpitations, shortness of breat with exertion or chest pain Psych Psychiatric: Yes depression and anxiety; No hearing voices Resp Respiratory: No shortness of breath, No sleep apnea, No cough, No COPD, Yes asthma, No emphysema and No wheezing Gastro Gastrointestinal: No abdominal pain, No nausea or vomiting, No diarrhea, No constipation, No blood in stool, No acid reflux, No hemorrhoids, No ulcers, No gallbladder problem and No black,tarry stools Rohith Hematologic: No blood thinners, No blood disorders, No bleeding, No anemia and No blood clots Neuro Neurologic: No abnormal gait Exam Const General: cooperative, healthy appearing, comfortable and no acute distress [facility] Head: normocephalic and atraumatic Neck Neck: normal visual inspection Chest Other: Inspection: Symmetric bilaterally, right breast bx site well healed, no right axillary adenopathy on exam or seen with bedside U/S Resp Effort & Inspection: normal respiratory effort Cardio Rate: regular rate GI Inspection: non-distended Palpation: soft, no guarding and nontender Skin General: no rashes or lesions noted Neuro General: patient oriented x3 Extrem General: no clubbing, cyanosis or edema Psych Affect: normal affect Assessment and Plan Assessment and Plan (1) Invasive ductal carcinoma of right breast: Status: Acute Plan - Dr. Estelita Lakhani MD: I have given the patient options for initial surgical treatment. Options are the following: lumpectomy followed by radiation therapy vs. mastectomy vs. mastectomy followed by immediate reconstruction. I have described the procedures to the patient. I have described the advantages and disadvantages of the options, but I have told the patient that among the options, the survival rate for breast cancer is the same. I have told the patient that with all the surgeries that a sentinel lymph node biopsy is required. I have described the procedure of sentinel lymph node biopsy to the patient. I have told the patient that if the biopsy is positive for metastatic disease, then a full axillary lymph node dissection is required. I have told the patient that adjuvant chemotherapy will be required should the lymph nodes reveal metastatic disease. Also, a full lymph node dissection will increase the risk for lymphedema, especially if there are 4 or more lymph nodes positive for metastatic disease and radiation to the axilla is also required. I have told the patient the risks of surgery, including but not limited to: infe ction, bleeding, scar tissue, seroma and persistent seroma, lymph leak, injury to any blood vessels, injury to any nerves (particularly the long thoracic, the thoracodorsal, and the second intercostal brachial and the resultant sequelae), lymphedema, cosmetic deformity, dysesthesias, wound infections, further surgery (especially if margins are not clear), complications of anesthesia, etc. the patient understands. The patient will think about the options and discuss it further with the family. The patient will contact me in the next few days when she decides what the patient wishes to do. Also patient see Dr. Vargas as currently she is leaning towards a lumpectomy with radiation. Patient does have a wedding to attend and would plan on swimming during that time August 22-. We will plan on surgery after the wedding. Addendum: Patient called back and states that she would want to have the surgery prior to the wedding. I have answered all the patient?s questions at this point to her satisfaction and she has no further questions. Estelita Lakhani M.D. Pager: [phone] [facility] [address] [place] [address] [place] [address] Office: [phone] Coding Level of Care Code Off vis,est,level 5 Diagnoses Invasive ductal carcinoma of right breast C50.911 08/10/21 0842<Electronically signed by Estelita Lakhani MD>Date Estelita Lakhani MD
[2021-08-16] MEDS: Cefazolin 2 GM in 0.9% Normal Saline 100 ML IV (13:00)
[2021-08-16] MEDS: Isosulfan Blue 1% 5 ML Vial (13:15)
[2021-08-16] MEDS: 0.9% Normal Saline (Pres. free 10 ML Vial (13:15)
--- NOTE | 2021-08-16 14:40 | BI_ITS ---
SURGICAL BREAST SPECIMEN RADIOGRAPH CLINICAL: Document presence of tissue clip marker in biopsy specimen. FINDINGS: Specimen shows presence of tissue clip marker. Electronically Signed: Cesar Avila MD at 14:57 EDT , BI/Breast Biopsy Specimen
--- NOTE | 2021-08-16 14:40 | PCM.OPRPT ---
Report of Operation Date of Procedure: 08/16/21 Pre-Operative Diagnosis: Right breast cancer Post-Operative Diagnosis: Same Surgery/Procedure Performed:: Right ultrasound needle localization lumpectomy, sentinel lymph node biopsy with Lymphazurin and nuclear tracer Description of Surgical Findings:: Frozen?2 out of 2 sentinel nodes negative Surgeon: Estelita Lakhani service order dispatcher chief: Riddhi Villaseñor Type of Anesthesia: General/Supplemental Anesthesiologist: Rodolfo Pichardo Special Medications: Ancef 2 g IV x1 Specimen's removed: 1. [place] lymph node?right x2 (frozen = negative x2), 2. Right lumpectomy Estimated Blood Loss (mL): < 10 cc Description of Procedure: This surgery was performed for curative intent. In radiology the breast tissue was injected with TC-9 9 sulfur colloid. 90 minutes later the patient was taken to the operating room and general anesthesia was induced. 5 cc of Lymphazurin 1% blue dye was injected in the 4 quadrants periareolar along with 10 cc of normal saline. This was massaged gently for 5 minutes. The right breast and axilla were prepped and draped in usual sterile fashion. A timeout was completed verifying correct patient, procedure, site, positioning, special equipment prior to beginning procedure. Handheld gamma probe was used to identify the location of the hottest spot in the axilla. Prior to the incision, the counts were 41. The incision was made in the hot node was identified. The probe was placed in contact with the node in the 10 count was 752. The bed of the node measured 9 counts. An additional blue node was removed which only had a 10 count of 41. No additional blue or hot or palpable nodes were detected. Ultrasound was used to place the Kopan's needle. Picture was taken. A curvilinear incision was planned in such a way as to minimize the amount of dissection to reach the mass. Flaps were raised in the location of the wire confirmed. The wire was delivered into the wound. 2 silk [id number] stay suture was placed around the wire and used for traction. Dissection was then taken down circumferentially, taking care to include the entire localization needle and wide margin of grossly normal tissue. The specimen and entire localizing wire were removed. The specimen was oriented and sent to radiology with the localization studies. Confirmation was received that the entire target lesion had been resected. 3 medium clips were placed in a vertical fashion at the the deep aspect of the cavity which was at the the pectoral fascia?to localize the cavity. The cavities were irrigated with sterile water. Hemostasis was checked. The breast and axillary wounds were closed with interrupted sutures of 3-0 Vicryl and subcuticular sutures of 4-0 Monocryl. No attempt was made to close the space. Dermabond were placed over both incisions. A dressing of fluff gauze and supportive bra placed. The patient tolerated procedure well was taken to the postanesthesia care in stable condition. Complications none
--- NOTE | 2021-08-16 14:48 | EX.PCM.DISCH ---
Discharge Instructions Diet Discharge Diet: No restrictions Activity Discharge Activity: May Not Drive (for 2-3 days or while taking narcotic pain meds.) May shower in (days): 1 Lifting Restrictions: 10 pounds for 1 week. Dressing / Incision Call your doctor if your incision/area has: Continuous Slow Oozing, Sudden Increased Bleeding, Increased Pain/ Swelling and Increased Redness Call your doctor if you observe: Fever of 101 or Higher Suture Line Care: Avoid Pulling/Pushing and Avoid Pinching/Bending Remove Dressing in: 1 day Additional Dressing/Incision Instructions:: Remove bulky dressing tomorrow. May leave any op-site dressing for 3-4 days (okay to shower with OpSite in place). Dermabond (glue) was used at the axillary incision this may start to peel off in about 5 days. Okay to remove Steri-Strips from the breast incision in 7 to 10 days with annual follow-up. Wear good supportive bra for the first week including the night for the first 2 to 3 nights. Follow Up Care Please Follow Up With: Estelita Lakhani MD When: Please call [phone] for an appointment to be seen in 2 week. Test Results: Test results from this visit will be discussed in further detail at your follow-up appointment, if applicable. Discharge Plan Admission Attending Provider: Estelita Lakhani Primary Care Provider: Malachi Kendall Discharge Orders/Prescriptions Prescriptions: New oxycodone-acetaminophen 5-325 mg tablet 1 - 2 tab PO Q6H PRN (Reason: pain) 3 Days Qty: 14 RF: 0 Continued naproxen sodium [Aleve] 220 mg capsule 220 mg PO BID PRN (Reason: Pain) RF: 0 albuterol sulfate 0.63 mg/3 mL solution for nebulization 0.63 mg INHALATION Q4H PRN (Reason: shortness of breath or wheezing) Qty: 90 RF: 2 bupropion HCl 300 mg tablet extended release 24 hr 300 mg PO DAILY Qty: 90 RF: 3 escitalopram oxalate [Lexapro] 5 mg tablet 5 mg PO QDAY Qty: 90 RF: 2 baclofen 10 mg tablet 10 mg PO BID PRN (Reason: muscle spasm) Qty: 60 RF: 0 amlodipine 5 mg tablet 5 mg PO DAILY Qty: 90 RF: 1 sumatriptan succinate [Imitrex] 100 mg tablet 100 mg PO ONCE PRN (Reason: MIGRAINES) RF: 0 budesonide-formoterol [Symbicort] 160-4.5 mcg/actuation HFA aerosol inhaler 2 puff INHALATION BID Qty: 10.2 RF: 1 levothyroxine 112 mcg tablet 112 mcg PO DAILY Qty: 60 RF: 1 Referrals / Follow Up: Malachi Kendall MD [Primary Care Provider] - Disposition Disposition (needs filled in before D/C Order can be placed): Home, Self Care
[2021-08-16] MEDS: Acetaminophen 325 MG Tablet PO (17:22)
[2021-08-16] MEDS: oxyCODONE 5 MG Tablet PO (17:22)
== END 2021-08-16 23:59 | disposition home or self-care (01) ==
LOC: SDC 09:27 → AC 09:29
PROVIDERS: PCP Internal Medicine; Referring Provider Surgery; Visit Provider Surgery
PROC: 0HBV0ZZ Excision of Bilateral Breast, Open Approach (ICD-10-PCS; CPT 19302; principal; 2021-08-16 13:15)
DX: C50.911 Malignant neoplasm of unspecified site of right female breast (principal); Z17.0 Estrogen receptor positive status [ER+]; Z20.822 Contact with and (suspected) exposure to COVID-19; I10 Essential (primary) hypertension; E03.9 Hypothyroidism, unspecified; J45.909 Unspecified asthma, uncomplicated; Z79.1 Long term (current) use of non-steroidal anti-inflammatories (NSAID); Z79.890 Hormone replacement therapy; Z79.899 Other long term (current) drug therapy
CPT/HCPCS: 19301; 38525; 38900; 76098; 78195; 87426; 88305; 88307; 88331; 88332; 88341; 88342; A9541; J7120; J2405; J3490; Q9968

== ENCOUNTER 2021-08-29 08:19 | Outpatient (CLI) | payer OTHER, SELFPAY ==
--- NOTE | 2021-08-29 08:30 | BD_ITS ---
STUDY: DUAL ENERGY X-RAY ABSORPTIOMETRY / DXA REASON FOR EXAM: Female, 56 years old. POST MENOPAUSE/PRE AI RX -- SCREENING TECHNIQUE: Bone Mineral Density (BMD) measurements of lumbar spine and bilateral hips were obtained. COMPARISON: None. FINDINGS: Lumbar Spine (L1-L4): g/cm2 (1.130) / T-score (1.1) / Z-score (2.3) Findings are suggestive of normal bone density with a low fracture risk. Left Femur Total: g/cm2 (0.957) / T-score (0.1) / Z-score (0.9) Left Femoral Neck: g/cm2 (0.871) / T-score (0.2) / Z-score (1.4) Right Femur Total: g/cm2 (0.979) / T-score (0.3) / Z-score (1.1) Right Femoral Neck: g/cm2 (0.841) / T-score (-0.1) / Z-score (1.1) BD/Dexa Bone Density Study IMPRESSION: The patient is considered normal as outlined below according to World Yohann[employer] Organization (WHO) criteria with a low fracture risk. Reference Information: The T-score is the number of standard deviations above or below the standard which is normal for young adults at their peak bone mineral density. The World Health Organization (WHO) interprets the T-scores as follows: Above -1 Normal bone density Between -1 and -2.5 Osteopenia Equal to / or below -2.5 Osteoporosis As a practical clinical guideline, osteopenia may be graded as follows: Mild -1 through -1.5 Moderate -1.6 through -2.0 Severe -2.1 through -2.4 The Z-score is the number of standard deviations above or below age-matched controls. A Z-score of less than -1.5 would be considered abnormal. References: 1. NIH Osteoporosis and Related Bone Diseases www osteo.org 2. International Society for Clinical Densitometry www iscd.org 3. National Osteoporosis Foundation www nof.org Electronically Signed: Cesar Avila MD at 10:06 EDT ,
== END 2021-08-29 23:59 | disposition home or self-care (01) ==
PROVIDERS: PCP Internal Medicine; Visit Provider Internal Medicine Hematology & Oncology
DX: Z78.0 Asymptomatic menopausal state (principal)
CPT/HCPCS: 77080

== ENCOUNTER → 2021-11-06 | Outpatient (CLI) | payer OTHER, SELFPAY ==
[2021-11-06 12:37] LABS: Thyroid Stim Hormone (TSH) 1.21 uIU/mL (0.358-3.74)
== END | disposition home or self-care (01) ==
LOC: BIMLAB 09:54
PROVIDERS: PCP Internal Medicine; Visit Provider Internal Medicine
DX: E03.9 Hypothyroidism, unspecified (principal)
CPT/HCPCS: 36415; 84443

== ENCOUNTER → 2022-02-07 | Outpatient (CLI) | payer OTHER, SELFPAY ==
[2022-02-07 12:38] LABS: Anion Gap 8 (5-15); BUN 16 mg/dL (7-18); Calcium,Total 9.1 mg/dL (8.5-10.1); Chloride 105 mmol/L (98-107); Creatinine, Serum 1.23 mg/dL (0.55-1.02); EST Glomerular Filtration Rate 48 mL/min (>60); Est Glom Filt Rate - Afr Amer 58 mL/min (>60); Glucose 90 mg/dL (74-106); Potassium 4.1 mmol/L (3.5-5.1); Sodium Level 140 mmol/L (136-145)
== END | disposition home or self-care (01) ==
LOC: BIMLAB 10:18
PROVIDERS: PCP Internal Medicine; Referring Provider Internal Medicine; Visit Provider Internal Medicine
DX: E83.51 Hypocalcemia (principal); I10 Essential (primary) hypertension
CPT/HCPCS: 36415; 80048; 82306

== ENCOUNTER → 2022-05-26 | Outpatient (CLI) | payer OTHER, SELFPAY ==
[2022-05-26 12:04] LABS: Absolute Lymphocyte Count 1.62 X10^3/uL (0.83-4.51); Absolute Neutrophil Count 2.5 X10^3/uL (2.0-7.7); Basophil# 0.05 X10^3/uL; Eosinophils% 4.1 % (0-5); Hematocrit 44.1 % (37-47); Hemoglobin 14.2 g/dL (12.0-15.0); Lymphocyte # 1.62 X10^3/ul (0.83-4.51); Lymphocyte % 33.6 % (19-41); Mean Corp Hgb Conc 32.2 g/dL (32-36); Mean Corpuscular Hgb 28.4 pg (27.0-32.0); Mean Corpuscular Volume 88.2 fL (81-99); Mean Platelet Vol. 10.5 fl (6.2-12.0); Monocyte# 0.42 X10^3/uL; Monocyte% 8.7 % (0-10); NRBC Flagged by Analyzer 0 % (0-5); Neutrophil # 2.52 X10^3/uL (2.7-7.7); Neutrophil % 52.4 % (47-70); Platelet Count 283 K/mm3 (150-450); RBC Distribution Width CV 13.5 % (11.6-14.6); RBC Distribution Width SD 43.6 fl (35.1-43.9); White Blood Count 4.8 K/mm3 (4.4-11.0)
[2022-05-26 12:46] LABS: ALB/GLOB Ratio 1.1 RATIO (0.9-2.4); AST(SGOT) 13 U/L (15-37); Alanine Aminotransfer ALT/SGPT 29 U/L (13-56); Albumin, Serum 3.6 g/dL (3.2-5.0); Alkaline Phosphatase 78 U/L (45-117); Anion Gap 9 (5-15); BUN 16 mg/dL (7-18); BUN/Creat Ratio 15.8 RATIO (10-20); Calcium,Total 8.8 mg/dL (8.5-10.1); Chloride 106 mmol/L (98-107); Cholesterol 200 mg/dL (200); Creatinine, Serum 1.01 mg/dL (0.55-1.02); EST Glomerular Filtration Rate 60 mL/min (>60); Est Glom Filt Rate - Afr Amer 72 mL/min (>60); Globulin 3.4 g/dL (2.2-4.2); Glucose 89 mg/dL (74-106); High Density Lipoprotein 73 mg/dL; Potassium 4.2 mmol/L (3.5-5.1); Sodium Level 141 mmol/L (136-145); Thyroid Stim Hormone (TSH) 1.64 uIU/mL (0.358-3.74); Triglycerides 98 mg/dL; Very Low Density Lipoprotein 20 mg/dL (5-40)
== END | disposition home or self-care (01) ==
LOC: BIMLAB 09:35
PROVIDERS: PCP Internal Medicine; Referring Provider Internal Medicine; Visit Provider Internal Medicine
DX: I10 Essential (primary) hypertension (principal); E03.9 Hypothyroidism, unspecified
CPT/HCPCS: 36415; 80053; 80061; 84443; 85025

== ENCOUNTER → 2023-02-09 | Outpatient (CLI) | payer OTHER, SELFPAY ==
[2023-02-09 15:48] LABS: Anion Gap 4 (5-15); BUN 17 mg/dL (7-18); Calcium,Total 8.9 mg/dL (8.5-10.1); Chloride 108 mmol/L (98-107); Creatinine, Serum 1.06 mg/dL (0.55-1.02); EST Glomerular Filtration Rate 56 mL/min (>60); Est Glom Filt Rate - Afr Amer 68 mL/min (>60); Glucose 82 mg/dL (74-106); Potassium 4.2 mmol/L (3.5-5.1); Sodium Level 140 mmol/L (136-145); Thyroid Stim Hormone (TSH) 7.68 uIU/mL (0.358-3.74)
== END | disposition home or self-care (01) ==
LOC: BIMLAB 14:15
PROVIDERS: PCP Internal Medicine; Visit Provider Internal Medicine
DX: I10 Essential (primary) hypertension (principal); E03.9 Hypothyroidism, unspecified
CPT/HCPCS: 36415; 80048; 84443

== ENCOUNTER → 2023-03-20 | Outpatient (CLI) | payer OTHER, SELFPAY ==
[2023-03-20 12:55] LABS: Thyroid Stim Hormone (TSH) 6.86 uIU/mL (0.358-3.74)
== END | disposition home or self-care (01) ==
LOC: BIMLAB 10:41
PROVIDERS: PCP Internal Medicine; Visit Provider Internal Medicine
DX: E89.0 Postprocedural hypothyroidism (principal)
CPT/HCPCS: 36415; 84443

== ENCOUNTER → 2023-05-13 | Outpatient (CLI) | payer OTHER, SELFPAY ==
[2023-05-13 12:23] LABS: Absolute Lymphocyte Count 1.11 X10^3/uL (0.83-4.51); Absolute Neutrophil Count 7.7 X10^3/uL (2.0-7.7); Basophil# 0.03 X10^3/uL; Basophil% 0.3 % (0-1); Eosinophil# 0.28 X10^3/uL; Eosinophils% 2.8 % (0-5); Hematocrit 44.2 % (37-47); Hemoglobin 14.3 g/dL (12.0-15.0); Lymphocyte # 1.11 X10^3/ul (0.83-4.51); Lymphocyte % 11.3 % (19-41); Mean Corp Hgb Conc 32.4 g/dL (32-36); Mean Corpuscular Hgb 29.1 pg (27.0-32.0); Mean Platelet Vol. 10.7 fl (6.2-12.0); Monocyte# 0.66 X10^3/uL; Monocyte% 6.7 % (0-10); NRBC Flagged by Analyzer 0 % (0-5); Neutrophil # 7.65 X10^3/uL (2.7-7.7); Neutrophil % 77.9 % (47-70); Platelet Count 272 K/mm3 (150-450); RBC Distribution Width CV 13.6 % (11.6-14.6); RBC Distribution Width SD 45.3 fl (35.1-43.9); Red Blood Count 4.91 M/mm3 (4.2-5.4); White Blood Count 9.8 K/mm3 (4.4-11.0)
[2023-05-13 12:52] LABS: AST(SGOT) 19 U/L (15-37); Alanine Aminotransfer ALT/SGPT 30 U/L (13-56); Albumin, Serum 3.4 g/dL (3.2-5.0); Alkaline Phosphatase 88 U/L (45-117); Anion Gap 5 (5-15); BUN 19 mg/dL (7-18); BUN/Creat Ratio 19.3 RATIO (10-20); Chloride 110 mmol/L (98-107); Cholesterol 182 mg/dL (200); Creatinine, Serum 0.98 mg/dL (0.55-1.02); EST Glomerular Filtration Rate 61 mL/min (>60); Est Glom Filt Rate - Afr Amer 74 mL/min (>60); Globulin 3.5 g/dL (2.2-4.2); Glucose 108 mg/dL (74-106); High Density Lipoprotein 68 mg/dL; Potassium 4.5 mmol/L (3.5-5.1); Protein, Total 6.9 g/dL (6.4-8.2); Sodium Level 140 mmol/L (136-145); Thyroid Stim Hormone (TSH) 2.23 uIU/mL (0.358-3.74); Triglycerides 89 mg/dL; Very Low Density Lipoprotein 18 mg/dL (5-40)
== END | disposition home or self-care (01) ==
LOC: BIMLAB 08:51
PROVIDERS: PCP Internal Medicine; Referring Provider Internal Medicine; Visit Provider Internal Medicine
DX: I10 Essential (primary) hypertension (principal); E03.9 Hypothyroidism, unspecified
CPT/HCPCS: 36415; 80053; 80061; 84443; 85025

== ENCOUNTER → 2024-01-07 | Outpatient (CLI) | payer OTHER, SELFPAY ==
[2024-01-07 16:26] LABS: Absolute Lymphocyte Count 1.66 X10^3/uL (0.83-4.51); Absolute Neutrophil Count 3.5 X10^3/uL (2.0-7.7); Basophil# 0.05 X10^3/uL; Basophil% 0.8 % (0-1); Eosinophil# 0.23 X10^3/uL; Eosinophils% 3.9 % (0-5); Lymphocyte # 1.66 X10^3/ul (0.83-4.51); Lymphocyte % 27.9 % (19-41); Mean Corp Hgb Conc 32.5 g/dL (32-36); Mean Corpuscular Hgb 28.7 pg (27.0-32.0); Mean Corpuscular Volume 88.3 fL (81-99); Monocyte# 0.49 X10^3/uL; Monocyte% 8.2 % (0-10); NRBC Flagged by Analyzer 0 % (0-5); Neutrophil # 3.52 X10^3/uL (2.7-7.7); Platelet Count 252 K/mm3 (150-450); RBC Distribution Width CV 14.3 % (11.6-14.6); RBC Distribution Width SD 46.1 fl (35.1-43.9); Red Blood Count 4.53 M/mm3 (4.2-5.4)
[2024-01-07 16:49] LABS: AST(SGOT) 12 U/L (15-37); Alanine Aminotransfer ALT/SGPT 21 U/L (13-56); Albumin, Serum 3.5 g/dL (3.2-5.0); Alkaline Phosphatase 89 U/L (45-117); Anion Gap 8 (5-15); BUN 17 mg/dL (7-18); BUN/Creat Ratio 16.5 RATIO (10-20); Calcium,Total 8.2 mg/dL (8.5-10.1); Chloride 106 mmol/L (98-107); Creatinine, Serum 1.03 mg/dL (0.55-1.02); EST Glomerular Filtration Rate 58 mL/min (>60); Est Glom Filt Rate - Afr Amer 70 mL/min (>60); Globulin 3.4 g/dL (2.2-4.2); Glucose 94 mg/dL (74-106); Potassium 3.8 mmol/L (3.5-5.1); Protein, Total 6.9 g/dL (6.4-8.2); Sodium Level 140 mmol/L (136-145)
== END | disposition home or self-care (01) ==
LOC: BIMLAB 15:47
PROVIDERS: PCP Internal Medicine; Referring Provider Internal Medicine; Visit Provider Internal Medicine
DX: I10 Essential (primary) hypertension (principal); E89.0 Postprocedural hypothyroidism
CPT/HCPCS: 36415; 80053; 84443; 85025

== ENCOUNTER → 2024-02-18 | Outpatient (CLI) | payer OTHER, SELFPAY | END | disposition home or self-care (01) | LOC: LAB 16:14 | PROVIDERS: PCP Internal Medicine; Referring Provider Internal Medicine; Visit Provider Internal Medicine | DX: E89.0 Postprocedural hypothyroidism (principal) | CPT/HCPCS: 36415; 84443 ==

== ENCOUNTER → 2024-03-30 | Outpatient (CLI) | payer OTHER, SELFPAY ==
[2024-03-30 17:23] LABS: Anion Gap 4 (5-15); BUN 18 mg/dL (7-18); BUN/Creat Ratio 17.5 RATIO (10-20); Calcium,Total 8.9 mg/dL (8.5-10.1); Chloride 108 mmol/L (98-107); Cholesterol 186 mg/dL (200); Creatinine, Serum 1.03 mg/dL (0.55-1.02); EST Glomerular Filtration Rate 58 mL/min (>60); Est Glom Filt Rate - Afr Amer 70 mL/min (>60); Glucose 81 mg/dL (74-106); High Density Lipoprotein 75 mg/dL; Potassium 4.8 mmol/L (3.5-5.1); Sodium Level 140 mmol/L (136-145); Triglycerides 84 mg/dL; Very Low Density Lipoprotein 17 mg/dL (5-40)
[2024-03-30 18:12] LABS: Hemoglobin A1c 5.3 % (3.8-5.6)
== END | disposition home or self-care (01) ==
LOC: BIMLAB 16:08
PROVIDERS: PCP Internal Medicine; Referring Provider Internal Medicine; Visit Provider Internal Medicine
DX: E89.0 Postprocedural hypothyroidism (principal); E66.9 Obesity, unspecified; I10 Essential (primary) hypertension
CPT/HCPCS: 36415; 80048; 80061; 83036; 84443

== ENCOUNTER → 2024-08-03 | Outpatient (CLI) | payer BC, SELFPAY ==
--- NOTE | 2024-08-03 15:45 | BI_ITS ---
EXAM: SCRN MAMM (CAD)W/BRITT BILAT DATE: 08/03/2024 CLINICAL HISTORY: F, Age 59 y/o , BREAST CANCER SCREENING. Personal history of breast cancer with prior right lumpectomy. BREAST CANCER RISK ASSESSMENT: Not assessed. TECHNIQUE: Bilateral screening digital breast tomosynthesis with 2D and 3D images. Computer aided detection. COMPARISON: Prior exam(s) dating back to July 04, 2021.. FINDINGS: Bilateral Breast Mammographic Findings: No significant masses, calcifications or other abnormalities are identified. TISSUE DENSITY: The breast tissue is heterogenously dense, which may obscure small masses. Since prior study, the patient underwent lumpectomy in the deep upper central portion of the right breast with resultant postoperative scarring. Small bilateral axillary lymph nodes. Surgical clips are seen in the right axilla. BI/SCRN MAMM (CAD)W/BRITT BILAT IMPRESSION: Right Breast: BIRADS 2 BENIGN FINDING. Left Breast: BIRADS 1 NEGATIVE. OVERALL FINAL ASSESSMENT: BIRADS 2 BENIGN FINDING RECOMMENDATION: ROUTINE ANNUAL FOLLOW-UP Bilateral in 1 Year Normal interval followup mammograms are recommended in 12 months. A letter with findings and recommendations will be mailed to the patient. Reading Location: [place] [id number]
[2024-08-03 18:06] LABS: Anion Gap 11 (5-15); BUN 22 mg/dL (4-19); BUN/Creat Ratio 20.4 RATIO (10-20); Calcium,Total 8.7 mg/dL (7.6-11.0); Carbon Dioxide 20.7 mmol/L (21.0-32.0); Chloride 107 mmol/L (98-108); Creatinine, Serum 1.07 mg/dL (0.70-1.20); EST Glomerular Filtration Rate 59 (>60); Glucose 98 mg/dL (70-99); Sodium Level 139 mmol/L (133-145); Thyroid Stim Hormone (TSH) 0.022 uIU/mL (0.300-4.200)
== END | disposition home or self-care (01) ==
PROVIDERS: PCP Internal Medicine; Referring Provider Internal Medicine; Visit Provider Internal Medicine
DX: Z12.31 Encounter for screening mammogram for malignant neoplasm of breast (principal); E89.0 Postprocedural hypothyroidism; I10 Essential (primary) hypertension
CPT/HCPCS: 36415; 77063; 77067; 80048; 84443

== ENCOUNTER → 2024-11-21 | Outpatient (CLI) | payer BC, SELFPAY | END | disposition home or self-care (01) | LOC: BIMLAB 14:20 | PROVIDERS: PCP Internal Medicine; Referring Provider Internal Medicine; Visit Provider Internal Medicine | DX: E89.0 Postprocedural hypothyroidism (principal) | CPT/HCPCS: 36415; 84443 ==

== ENCOUNTER → 2024-12-02 | Outpatient (CLI) | payer BC, SELFPAY ==
[2024-12-02 10:27] LABS: Mucous, Urine 0 SEEN /hpf (<or=2+); Red Blood Cells-Urine 0 SEEN /hpf (0-5); Squamous Epithelial Cells - UA 0 SEEN /hpf (5-10)
[2024-12-02 10:56] LABS: Color, Urine Yellow (Yellow); Glucose, Dipstick Normal (Normal); Ketone-Dipstick Negative (Negative); Leukocyte Esterase-Dipstick Negative /ul (Negative); Nitrite-Dipstick Negative (Negative); Occult Blood-Urine Negative /ul (Negative); Protein-Dipstick Negative (Negative); Specific Gravity, Urine 1.010 (1.002-1.030); Urine Bilirubin Dipstick Negative (Negative)
== END | disposition home or self-care (01) ==
LOC: LAB 10:23
PROVIDERS: PCP Internal Medicine; Referring Provider Internal Medicine; Visit Provider Internal Medicine
DX: N32.81 Overactive bladder (principal)
CPT/HCPCS: 81001

== ENCOUNTER → 2024-12-13 | Outpatient (CLI) | payer BC, SELFPAY ==
--- NOTE | 2024-12-13 13:17 | RAD_ITS ---
PROCEDURE: TOE(S) MIN 2 VIEWS 12/13/2024 REASON FOR EXAM: TOE PAIN TECHNIQUE: TOE(S) MIN 2 VIEWS COMPARISON: No FINDINGS: No acute bone or soft tissue pathology. No significant osteoarthritis. RAD/Toe(s) Min 2 Views IMPRESSION: No acute findings Reading Location: [place] [id number]
== END | disposition home or self-care (01) ==
LOC: MTRAD 13:17
PROVIDERS: PCP Internal Medicine; Referring Provider Nurse Practitioner; Visit Provider Nurse Practitioner
DX: M79.675 Pain in left toe(s) (principal)
CPT/HCPCS: 73660

== ENCOUNTER 2025-01-10 16:07 | Outpatient (RCR) | payer BC, SELFPAY | END 2025-01-15 23:59 | LOC: NS 16:07 | PROVIDERS: PCP Internal Medicine; Referring Provider Internal Medicine; Visit Provider Internal Medicine | DX: Z71.3 Dietary counseling and surveillance (principal); E66.9 Obesity, unspecified; Z68.32 Body mass index [BMI] 32.0-32.9, adult | CPT/HCPCS: 97802 ==

== ENCOUNTER → 2025-03-06 | Outpatient (CLI) | payer BC, SELFPAY ==
[2025-03-06 10:32] LABS: Hematocrit 40.1 % (37-47); Hemoglobin 13.3 g/dL (12.0-15.0); Immature Granulocytes Count 0.020 X10^3/uL (0.0-0.0); Mean Corp Hgb Conc 33.2 g/dL (32-36); Mean Corpuscular Volume 88.9 fL (81-99); Mean Platelet Vol. 11.3 fl (6.2-12.0); NRBC Flagged by Analyzer 0 % (0-5); Platelet Count 232 K/mm3 (150-450); RBC Distribution Width CV 13.8 % (11.6-14.6); RBC Distribution Width SD 44.8 fl (35.1-43.9); Red Blood Count 4.51 M/mm3 (4.2-5.4); White Blood Count 5.7 K/mm3 (4.4-11.0)
[2025-03-06 10:57] LABS: AST(SGOT) 15 U/L (<=31); Alanine Aminotransfer ALT/SGPT 19 U/L (<=34); Albumin, Serum 3.9 g/dL (3.4-4.8); Alkaline Phosphatase 74 U/L (35-104); Anion Gap 9 (5-15); BUN 16 mg/dL (4-19); BUN/Creat Ratio 16.9 RATIO (10-20); Calcium,Total 8.6 mg/dL (7.6-11.0); Carbon Dioxide 24.7 mmol/L (21.0-32.0); Chloride 107 mmol/L (98-108); Cholesterol 178 mg/dL (<=200); Globulin 2.4 g/dL (2.2-4.2); Glucose 101 mg/dL (70-99); Low Density Lipoprotein Calc. 102 mg/dL; Potassium 4.3 mmol/L (3.3-5.1); Triglycerides 82 mg/dL; Very Low Density Lipoprotein 16 mg/dL (5-40); cholesterol:hdl ratio screen 2.91
[2025-03-06 11:06] LABS: Free T3 2.7 pg/mL (2.18-3.98); T4 Total, Thyroxin 8.1 ug/dL (4.8-13.9)
== END | disposition home or self-care (01) ==
LOC: MTLAB 08:46
PROVIDERS: Nurse Practitioner Family; PCP Internal Medicine; Referring Provider Internal Medicine; Visit Provider Internal Medicine
DX: I10 Essential (primary) hypertension (principal); E89.0 Postprocedural hypothyroidism
CPT/HCPCS: 36415; 80053; 80061; 84436; 84439; 84443; 84481; 85025